=== PATIENT | female | born 2000 | race Caucasian/White ===

== ENCOUNTER 2022-12-01 13:34 | Outpatient (CLI) | payer BC ==
[~2022-12-01 13:34] MED LIST: Magnevist 469MG/ML 20 ML VIAL ONE
== END 2022-12-01 13:35 | disposition home or self-care (01) ==
LOC: CSHMRI 13:34
PROVIDERS: ATTEND Nurse Practitioner Family
DX: E22.1 Hyperprolactinemia (principal)
CPT/HCPCS: 70553; A9579